=== PATIENT | female | born 1995 | race Asian ===

== ENCOUNTER 2017-08-26 17:24 | Emergency (ER) | payer OTHER ==
[~2017-08-26] VITALS: Ht 157.5 cm; Wt 52.9 kg
[2017-08-26 17:32] VITALS: TEMP 37.1; Ht 157.5 cm; Wt 52.9 kg
[2017-08-26] MEDS ORDERED: BCPILLS PO (17:45)
--- NOTE | 2017-08-26 18:25 | EMERGENCY ROOM VISIT NOTE ---
History Report prepared by Tracie: Little Gallego Under the Supervision of: Dr. Lloyd Leija D.O. First contact with patient: 17:45 Chief Complaint: URINARY SYMPTOMS Stated Complaint: ABD PAIN,EXCESSIVE URINATION History of Present Illness The patient is a 22 year old female who presents to the Emergency Room with complaints of persistent frequent urination starting earlier today. She reports that she is having vaginal discharge that has an abnormal odor. She is sexually active. She last had intercourse 1 week ago. It was protected. She does not think she has an STD. She was tested for STD a couple weeks ago. She reports lower abdominal pain and nausea. She denies any back pain, hematuria, or vomiting. Her last normal menstrual period was 1 month ago. She denies any medical problems. She denies any previous surgeries. She denies any tobacco or alcohol use. She is a student. Source of History: patient Onset: earlier today Position: other (global) Quality: other (frequent urination) Timing: other (persistent) Associated Symptoms: + nausea, + abdominal pain, No vomiting, No back pain Note: Pt reports vaginal discharge odor. Pt denies hematuria. Review of Systems See HPI for pertinent positives & negatives. A total of 10 systems reviewed and were otherwise negative. Past Medical & Surgical Medical Problems: (1) No chronic problems Family History No pertinent family history stated. Social History Smoking Status: Never Smoker Housing Status: lives with roommate Occupation Status: [employer] student Current/Historical Medications Scheduled Control Pills ( Control Pills), 1 TAB PO DAILY Allergies Coded Allergies: No Known Allergies (Unverified , 08/26/17) Physical Exam Vital Signs Date Time Temp Pulse Resp B/P (MAP) Pulse Ox O2 Delivery O2 Flow Rate FiO2 08/26/17 20:50 71 18 114/71 99 08/26/17 18:51 72 15 121/73 98 Room Air 08/26/17 17:32 37.1 91 20 129/78 99 Room Air Physical Exam GENERAL: Patient is awake, alert, and in no acute distress. Patient is resting comfortably and showing no signs of anxiety EYES: The conjunctivae are clear. The pupils are round and reactive. EARS, NOSE, MOUTH AND THROAT: The nose is without any evidence of any deformity. Mucous membranes are moist tongue is midline NECK: The neck is nontender and supple. RESPIRATORY: Normal respiratory effort is noted there is no evidence of wheezing rhonchi or rales CARDIOVASCULAR: Regular rate and rhythm noted there no murmurs rubs or gallops normal S1 normal S2 GASTROINTESTINAL: The abdomen is soft. Bowel sounds are present in all quadrants. Abdomen is nontender : External genitalia normal in appearance. No lesions or ulcerations. Cervix was erythematous in appearance. There was both a thick white discharge as well as thinner yellow discharged noted by manual exam. No cervical motion tenderness or adnexal tenderness bilaterally. MUSCULOSKELETAL/EXTREMITIES: There is no evidence of gross deformity full range of motion is noted in the hips and shoulders SKIN: There is no obvious evidence of any rash. There are no petechiae, pallor or cyanosis noted. NEUROLOGIC: Patient is awake alert and oriented x3 strength is symmetric patellar reflexes are 2+ bilaterally Medical Decision & Procedures Laboratory Results Test 08/26/17 18:30 Urine Color YELLOW Urine Appearance CLEAR (CLEAR) Urine pH 6.5 (4.5-7.5) Urine Specific [place] 1.025 (1.000-1.030) Urine Protein NEG (NEG) Urine Glucose (UA) NEG (NEG) Urine Ketones NEG (NEG) Urine Occult Blood NEG (NEG) Urine Nitrite NEG (NEG) Urine Bilirubin NEG (NEG) Urine Urobilinogen NEG (NEG) Urine Leukocyte Esterase NEG (NEG) Urine WBC (Auto) 0 /hpf (0-5) Urine RBC (Auto) 0-4 /hpf (0-4) Urine Hyaline Casts (Auto) 1-5 /lpf (0-5) Urine Epithelial Cells (Auto) 20-30 /lpf (0-5) Urine Bacteria (Auto) NEG (NEG) Urine Test NEG (NEG) Date/Time Source Procedure Growth Status 08/26/17 18:30 Cervix Swab Trichomonas Preparation - Final Complete Laboratory results per my review. Medications Administered Medications (Trade) Dose Ordered Sig/Gloria Route Start Time Stop Time Status Last Admin Dose Admin Ceftriaxone Sodium (Rocephin Im) 500 mg NOW ONCE IM 08/26/17 18:45 08/26/17 18:46 DC 08/26/17 18:49 500 MG Azithromycin (Zithromax Tab) 1,000 mg NOW ONCE PO 08/26/17 18:45 08/26/17 18:46 DC 08/26/17 18:48 1,000 MG Fluconazole (Diflucan Tab) 150 mg NOW ONCE PO 1015/17 18:45 08/26/17 18:46 DC 08/26/17 18:47 150 MG ED Course 1752: The patient was evaluated in room C11B. A complete history and physical examination were performed. 1844: Fluconazole 150 mg PO, Azithromycin 1000 mg PO, Rocephin Im 500 mg IM. 2038: Upon reevaluation, the patient is resting comfortably. I discussed the results and treatment plan with her. She verbalized agreement of the treatment plan. She was discharged home. Medical Decision Prior records/ancillary studies reviewed. Triage Nursing notes reviewed. The patient's history was concerning for abdominal pain. Differential diagnosis: Etiologies such as appendicitis, diverticulitis, PUD, biliary pathology, UTI, pancreatitis, obstruction, mesenteric ischemia, aortic pathology, infections, inflammatory bowel disease, renal colic, as well as others were entertained. The patient is a 22-year-old female who presented to the emergency department for vaginal discharge and dysuria. The patient's physical exam was not consistent with a rash or herpetic lesions on the genitalia. The cervix was noted to have discharge and I felt the patient's condition could be consistent with cervicitis. The patient was treated for cervicitis as well as for yeast infection. Swabs were obtained and sent for culturing. I encouraged the patient to avoid any sexual activity until she was completely cleared and cultures were returned. She was also encouraged to follow-up with [facility] for reevaluation this week and return to the emergency department immediately if symptoms change worsen or the need arises. Medication Reconcilliation Current Medication List: was personally reviewed by me Blood Pressure Screening Patient's blood pressure: Normal blood pressure Blood pressure disposition: Did not require urgent referral Impression Primary Impression: Cervicitis Scribe Attestation The scribe's documentation has been prepared under my direction and personally reviewed by me in its entirety. I confirm that the note above accurately reflects all work, treatment, procedures, and medical decision making performed by me. Departure Information Dispostion Home / Self-Care Referrals [facility] Forms HOME CARE DOCUMENTATION FORM, IMPORTANT VISIT INFORMATION Patient Instructions ED VD Cervicitis Treated, My [facility] Additional Instructions Follow-up with [facility] this week for reevaluation as well as for final culture results. Avoid any sexual contact until symptoms have completely resolved. Return to the emergency department immediately symptoms change worsen or the need arises.
[2017-08-26] MEDS ORDERED: FLUCONAZOLE 50 MG TAB PO ONE (18:45)
[2017-08-26] MEDS ORDERED: AZITHROMYCIN 250 MG TAB PO ONE (18:45)
[2017-08-26] MEDS ORDERED: CEFTRIAXONE SOD 350MG/ML 1 GM VIAL IM ONE (18:45)
[2017-08-26 18:46] LABS: URINE APPEARANCE CLEAR (CLEAR); URINE BILIRUBIN NEG (NEG); URINE COLOR YELLOW; URINE EPITHELIAL CELL AUTO 20-30 /lpf (0-5); URINE NITRITE NEG (NEG); URINE PH 6.5 (4.5-7.5); URINE SPECIFIC GRAVITY 1.025 (1.000-1.030); UROBILINOGEN NEG (NEG); ZZURINE CULT IF INDIC CATH NO
[2017-08-26 18:49] LABS: MANUAL MICROSCOPIC REQUIRED? NO; REVIEW REQ? NO
[2017-08-26 20:50] VITALS: BP 114/71; PULSE 71; O2SAT 99
[2017-08-29 00:44] LABS: CHLAMYDIA TRACH RNA*** NOT DETECTED (NOT DETECTED); GC (NEIS GONORRHOEAE)RNA** NOT DETECTED (NOT DETECTED)
== END 2017-08-26 20:51 | disposition home or self-care (01) ==
LOC: C.EDB 17:24 → C.EDC 20:51
DX: N72 Inflammatory disease of cervix uteri (principal)